=== PATIENT | male | born 1980 ===

== ENCOUNTER 2019-09-10 22:31 | Emergency (ER) | payer BC ==
--- NOTE | 2019-09-10 23:02 | Emergency Department Report ---
ED Chest Pain HPI - General Chief Complaint: Chest Pain Stated Complaint: HEART PALPITATIONS Time Seen by Provider: 09/10/19 22:54 Source: EMS Mode of arrival: Stretcher Limitations: Language Barrier - History of Present Illness Initial Comments: 38-year-old male status post surgery for hydrocele earlier today, presents to the ED with complaint of chest pain and palpitations. Patient states symptoms began approximately 6 hours ago. Patient reports throbbing pain heart racing. He reports mild shortness of breath. States episodes are intermittent. Denies any aggravating or alleviating factors. Patient denies any fever, cough, nausea, vomiting, leg pain or swelling. Patient denies any contact with anyone who has tested positive for COVID-19. MD Complaint: chest pain Onset: during rest Pain Location: left chest Pain Radiation: none Severity: mild Quality: other (throbbing) Consistency: intermittent Improves With: nothing Worsens With: nothing re: dyspnea. denies: nausea, vomting, diaphoresis Other Symptoms: palpitations. denies: cough, fever, leg swelling - Related Data Home Medications Medication Instructions Recorded Confirmed Last Taken No Known Home Medications [No 09/10/19 09/10/19 Unknown Reported Home Medications] Allergies Allergy/AdvReac Type Severity Reaction Status Date / Time No Known Allergies Allergy Verified 08/31/19 10:17 Heart Score - HEART Score History: Slightly suspicious EKG: Normal Age: < 45 Risk factors: No known risk factors Troponin: < normal limit HEART Score: 0 ED Review of Systems ROS: Stated complaint: HEART PALPITATIONS Other details as noted in HPI Comment: All other systems reviewed and negative Constitutional: denies: chills, fever Respiratory: shortness of breath. denies: cough Cardiovascular: chest pain, palpitations Gastrointestinal: denies: nausea, vomiting, diarrhea Musculoskeletal: other (Denies leg pain or swelling) Neurological: denies: headache ED Past Medical Hx - Past Medical History Hx Hypertension: No Hx Heart Attack/AMI: No Hx Liver Disease: No Hx Renal Disease: Yes (stones) Hx Sickle Cell Disease: No Hx Seizures: No Hx Kidney Stones: Yes Hx Asthma: No Hx COPD: No Hx HIV: (NEVER TESTED) - Surgical History Hx Pacemaker: No Hx Internal Defibrillator: No - Social History Smoking Status: Current Every Day Smoker - Medications Home Medications: Home Medications Medication Instructions Recorded Confirmed Last Taken Type No Known Home Medications [No 09/10/19 09/10/19 Unknown History Reported Home Medications] ED Physical Exam - General Limitations: Language Barrier General appearance: alert, in no apparent distress - Head Head exam: Present: atraumatic, normocephalic - Eye Eye exam: Present: normal appearance, EOMI - ENT ENT exam: Present: mucous membranes moist - Neck Neck exam: Present: normal inspection - Respiratory Respiratory exam: Present: normal lung sounds bilaterally. Absent: respiratory distress - Cardiovascular Cardiovascular Exam: Present: regular rate, normal rhythm - GI/Abdominal GI/Abdominal exam: Present: soft, tenderness (Mild suprapubic). Absent: di stended - exam: Present: other (Dressings in place) - Extremities Exam Extremities exam: Present: normal inspection. Absent: pedal edema, calf tenderness - Neurological Exam Neurological exam: Present: alert, oriented X3 - Psychiatric Psychiatric exam: Present: normal affect, normal mood - Skin Skin exam: Present: warm, dry, intact, normal color. Absent: rash ED Course Vital Signs 09/10/19 09/10/19 09/11/19 22:57 23:03 00:23 Temperature 98.2 F Pulse Rate 90 86 Respiratory 18 18 18 Rate Blood Pressure 102/49 Blood Pressure 111/53 [Right] O2 Sat by Pulse 98 98 96 Oximetry 09/11/19 00:32 Temperature 98.2 F Pulse Rate Respiratory Rate Blood Pressure Blood Pressure [Right] O2 Sat by Pulse Oximetry ED Medical Decision Making - Lab Data Result diagrams: 09/10/19 23:08 09/10/19 23:08 - EKG Data -: EKG Interpreted by Co EKG shows normal: sinus rhythm, axis, intervals, QRS complexes, ST-T waves Rate: normal - EKG Data Interpretation: no acute changes - Radiology Data Radiology results: report reviewed, image reviewed - Medical Decision Making 38-year-old male, no past medical history, presents to ED with chest pain and palpitations following surgery for hydrocele. EKG unremarkable, no arrythmia noted, no ST changes present. Labs unremarkable except for mildly elevated WBCs of 13, which is likely secondary to his recent surgery earlier today. D-dimer also negative. Vitals normal. Patient feeling better at this time, no chest pain currently. Feels comfortable with discharge home. Outpatient follow-up advised. Return precautions given. - Differential Diagnosis ACS, pneumonia, PE, arrythmia Critical care attestation.: If time is entered above; I have spent that time in minutes in the direct care of this critically ill patient, excluding procedure time. ED Disposition Clinical Impression: Chest pain, Palpitations Disposition: TO HOME OR SELFCARE Is pt being admited?: No Condition: Stable Instructions: Chest Pain (ED), Palpitations (ED) Referrals: PRIMARY MD SHARRI [Primary Care Provider] - 3-5 Days [facility] [Provider Group] - 3-5 Days LUZ MARINA ANSARI MD [Staff Physician] - 3-5 Days Time of Disposition: 00:22
[2019-09-10 23:35] LABS: Basophils % (Auto) 0.1 % (0.0-1.8); Hematocrit 37.8 % (35.5-45.6); Hemoglobin 13.2 gm/dl (11.8-15.2); Lymphocytes # (Auto) 1.4 K/mm3 (1.2-5.4); Lymphocytes % (Auto) 9.5 % (13.4-35.0); Mean Corpuscular HGB Conc 35 % (32-34); Mean Corpuscular Volume 86 fl (84-94); Monocytes # (Auto) 0.7 K/mm3 (0.0-0.8); Monocytes % (Auto) 4.9 % (0.0-7.3); Platelet Count 371 K/mm3 (140-440); Red Blood Count 4.41 M/mm3 (3.65-5.03); Red Cell Distribution Width 13.8 % (13.2-15.2)
--- NOTE | 2019-09-10 23:56 | XRay Report ---
CHEST 1 VIEW 11:15 PM INDICATION / CLINICAL INFORMATION: Chest pain and palpitations starting at approximately 5:00 PM. COMPARISON: None available. FINDINGS: SUPPORT DEVICES: None. HEART / MEDIASTINUM: The heart size and pulmonary vasculature are normal. The aorta is normal in [place]. LUNGS / PLEURA: No significant pulmonary or pleural abnormality. No pneumothorax. ADDITIONAL FINDINGS: No significant additional findings. IMPRESSION: No acute findings. Signer Name: Miguel Ferrell MD Signed: 09/10/2019 11:51 PM Workstation Name: [id number]
[2019-09-11] LABS: BUN/Creatinine Ratio 18; Blood Urea Nitrogen 14 mg/dL (9-20); Calcium 9.3 mg/dL (8.4-10.2); Hemolysis Index 3
[2019-09-11 00:01] LABS: INR 1.08 (0.87-1.13)
[2019-09-11 00:02] LABS: Partial Thromboplastin Time 26.6 Sec. (24.2-36.6)
[2019-09-11 00:26] VITALS: BP 111/53
== END 2019-09-11 00:33 | disposition home or self-care (01) ==
LOC: ED 22:31
DX: R07.89 Other chest pain (principal); R00.2 Palpitations; F17.200 Nicotine dependence, unspecified, uncomplicated
CPT/HCPCS: 36415; 71045; 80048; 84484; 85025; 85379; 85610; 85730; 93005